=== PATIENT | female | born 1980 | race Caucasian/White ===

== ENCOUNTER 2018-04-22 14:39 | Emergency (ER) | payer BC ==
[2018-04-22] MEDS: ONDANSETRON (ODT) 4 MG TAB ODT (16:28)
[2018-04-22] MEDS: HYDROCODONE/APAP (5/325) TAB PO (16:28)
[2018-04-22] MEDS: KETOROLAC 30 MG INJ IM (16:36)
[2018-04-22 16:43] LABS: ADD UMIC YES; UR ASCORBIC ACID 40 mg/dL (NEGATIVE); UR BILIRUBIN (Dip) NEGATIVE (NEGATIVE); UR BLOOD (Dip) 3+ mg/dL (NEGATIVE); UR CLARITY CLEAR (CLEAR); UR COLOR YELLOW (YELLOW); UR GLUCOSE (Dip) NEGATIVE (NEGATIVE); UR KETONES (Dip) NEGATIVE (NEGATIVE); UR LEUKOCYTE ESTERASE (Dip) NEGATIVE Leu/ul (NEGATIVE); UR NITRITE (Dip) NEGATIVE (NEGATIVE); UR RBC 99 /HPF (0-5); UR SPECIFIC GRAVITY (Dip) 1.023 (1.003-1.030); UR SQUAMOUS EPITHELIAL CELL FEW /HPF (FEW); UR TOTAL PROTEIN (Dip) 1+ mg/dl (NEGATIVE); UR UROBILINOGEN (Dip) NEGATIVE (NEGATIVE); UR WBC 2 /HPF (0-5)
== END 2018-04-22 20:41 | disposition home or self-care (01) ==
LOC: FTE 14:39
DX: R51 Headache (principal); R11.0 Nausea
CPT/HCPCS: 70450; 81001; 81025; 96372; 99285-25

== ENCOUNTER 2018-06-19 13:04 | Emergency (ER) | payer BC ==
[2018-06-19] MEDS: predniSONE 20 MG TAB PO (14:10)
[2018-06-19] MEDS: IBUPROFEN 600 MG TAB PO (14:11)
== END 2018-06-19 14:14 | disposition home or self-care (01) ==
LOC: FTE 14:14
DX: I88.9 Nonspecific lymphadenitis, unspecified (principal); L73.9 Follicular disorder, unspecified
CPT/HCPCS: 99283